=== PATIENT | female | born 2000 | race Caucasian/White ===

== ENCOUNTER 2022-06-24 08:45 | Emergency (ER) | payer OTHER ==
[~2022-06-24] VITALS: Ht 152.4 cm; Wt 54.4 kg
== END 2022-06-24 14:36 | disposition home or self-care (01) ==
LOC: EMR PED 08:45
DX: N39.0 Urinary tract infection, site not specified (principal); R10.9 Unspecified abdominal pain; K59.00 Constipation, unspecified; D27.9 Benign neoplasm of unspecified ovary